=== PATIENT | female | born 1940 | race Caucasian/White ===

== ENCOUNTER → 2017-07-06 16:50 | Outpatient (CLI) | payer MEDICARE, BC ==
[2013-02-13 08:57] VITALS: BMI 28.7
[~2017-07-06 16:50] MED LIST: PRILOSEC20 MG PO; VIVELLE-DOT 00.05 MG TD
== END | disposition home or self-care (01) ==
LOC: D.MAMMO 15:15
DX: Z12.31 Encounter for screening mammogram for malignant neoplasm of breast (principal)

== ENCOUNTER → 2019-04-01 10:59 | Outpatient (CLI) | payer MEDICARE, BC ==
[2013-02-13 08:57] VITALS: BMI 28.7
--- NOTE | 2019-04-09 09:52 | ST ---
PATIENT:JULES OSEI MEDICAL RECORD: [id number] SEX: F LOCATION:[facility] ORDER #: ADMISSION DATE: 04/01/19 AGE OF PATIENT: 79 REFERRING PHYSICIAN: INTERPRETING PHYSICIAN: ASTON HARO MD DATE OF SERVICE: 04/01/2019 PROCEDURE: Nuclear stress test. INDICATION: Angina and coronary artery disease, shortness of breath, and hypertension. She was exercised on standard Jorge protocol for 5 minutes achieving 100% maximum target heart rate response with 32 mCi of sestamibi injected at peak stress, 11 mCi were used previously for rest images. FINDINGS: Gated SPECT reveals preserved ejection fraction at 72% with good wall motion and thickening and brightening throughout all segments. SPECT imaging Cardiolite was used as myocardial fusion agent. There is homogeneous uptake throughout all segments at rest and stress with no evidence of inducible ischemia or previous infarction. OVERALL IMPRESSION: 1. This is a normal nuclear stress test with no evidence of inducible ischemia or previous infarction. 2. Gated SPECT reveals a preserved ejection fraction at 72%. In this patient with ongoing symptomatology, the current scan does not suggest the presence of hemodynamically significant coronary artery disease. Evaluate noncardiac etiology of chest pain. TRANSINT:[id number] Voice Confirmation ID: [id number] DOCUMENT ID: [id number] ASTON HARO MD at [id number] CC: [id number] DICTATION DATE: 04/01/19 1603 MICROFILM OPERATOR: 04/02/19 0309 DEP CLI 04/01/[address] [id number]
== END | disposition home or self-care (01) ==
LOC: D.HCCARDIO 10:59
PROVIDERS: ATTEND Internal Medicine Interventional Cardiology
DX: I25.10 Atherosclerotic heart disease of native coronary artery without angina pectoris (principal); R06.02 Shortness of breath; I10 Essential (primary) hypertension

== ENCOUNTER → 2020-11-24 10:10 | Outpatient (CLI) | payer MEDICARE, BC ==
[2013-02-13 08:57] VITALS: BMI 28.7
== END | disposition home or self-care (01) ==
LOC: D.MRI 10:10
PROVIDERS: ATTEND Clinical Nurse Specialist Family Health
DX: M25.511 Pain in right shoulder (principal)